=== PATIENT | female | born 2000 | race Caucasian/White ===

== ENCOUNTER 2019-03-23 08:53 | Emergency (ER) | payer OTHER ==
[~2019-03-23] VITALS: Ht 160 cm; Wt 72.7 kg
[~2019-03-23 08:53] MED LIST: BISA10SU2; COLA50CA; MIRALAX; MIRALEX OR; OXYB10TA; OXYB10TA OR; SENN8.6T5; [UNRECOGNIZED DRUG - OTHER]; [UNRECOGNIZED DRUG - OTHER]; dulcolax OR; mag citrate
[2019-03-23] MEDS ORDERED: CITA20TA7 PO (08:58)
[2019-03-23] MEDS ORDERED: ONDANSETRON 4 MG ORAL DISINTEGRATING TAB (Q0162 PER 1MG) PO ONE (09:45)
[2019-03-23 09:57] LABS: BASO # 0.1 10^3/uL (0.0-0.2); BASO % 0.5 % (0.0-1.0); EOS # 0.1 10^3/uL (0.0-0.50); HEMATOCRIT 37.4 % (36.0-47.0); HEMOGLOBIN 12.1 g/dl (12.0-15.5); LYMPH # 2.2 10^3/uL (1.5-6.5); LYMPH % 23.5 % (24.0-44.0); MEAN CORPUSCULAR HEMOGLOBIN 29.9 pg (27.0-33.0); MEAN CORPUSCULAR HGB CONC 32.4 g/dl (32.0-36.5); MEAN CORPUSCULAR VOLUME 92.3 fl (80.0-96.0); MONO # 0.6 10^3/uL (0.0-0.8); MONO % 5.9 % (0.0-5.0); NEUTROPHILS # 6.5 10^3/uL (1.8-7.7); NEUTROPHILS % 68.8 % (36.0-66.0); PLATELET COUNT, AUTOMATED 344 10^3/uL (150-450); RED BLOOD COUNT 4.05 10^6/uL (4.00-5.40); WHITE BLOOD COUNT 9.4 10^3/uL (4.0-10.0)
[2019-03-23 10:17] LABS: HCG, SERUM QUALITATIVE NEGATIVE (NEGATIVE)
[2019-03-23 10:27] LABS: ALBUMIN 3.7 GM/DL (3.2-5.2); ALT/SGPT 20 U/L (12-78); BILIRUBIN,DIRECT < 0.1 MG/DL (0.0-0.2); BILIRUBIN,TOTAL 0.2 MG/DL (0.2-1.0); BLOOD UREA NITROGEN 11 MG/DL (7-18); CARBON DIOXIDE LEVEL 26 MEQ/L (21-32); CHLORIDE LEVEL 107 MEQ/L (98-107); CREATININE FOR GFR 0.72 MG/DL (0.55-1.30); GLUCOSE, FASTING 95 MG/DL (70-100); MAGNESIUM LEVEL 1.9 MG/DL (1.8-2.4); POTASSIUM SERUM 4.3 MEQ/L (3.5-5.1); SODIUM LEVEL 140 MEQ/L (136-145); THYROID STIMULATING HORMONE 0.968 uIU/ML (0.463-3.98); TOTAL PROTEIN 7.2 GM/DL (6.4-8.2)
[2019-03-23] MEDS ORDERED: ONDA4TAB6 PO (11:04)
[2019-03-23 11:13] VITALS: BP 119/57
== END 2019-03-23 11:14 | disposition home or self-care (01) ==
LOC: M ED 08:53
DX: R42 Dizziness and giddiness (principal); R11.0 Nausea; Z79.899 Other long term (current) drug therapy
CPT/HCPCS: 80048; 80076; 83735; 84443; 84703; 85025; 99284; Q0162

== ENCOUNTER 2020-03-16 17:19 | Emergency (ER) | payer OTHER, SELFPAY ==
[~2020-03-16] VITALS: Ht 160 cm; Wt 75.0 kg
[~2020-03-16 17:19] MED LIST changes: +CITA20TA7 PO; +ONDA4TAB6 PO
[2020-03-16] MEDS ORDERED: ESCI20TA PO (17:26)
[2020-03-16] MEDS ORDERED: TOPI100T9 PO (17:26)
[2020-03-16] MEDS ORDERED: ONDANSETRON 4 MG ORAL DISINTEGRATING TAB PO ONE (18:15)
[2020-03-16 18:25] LABS: BASO % 0.3 % (0.0-1.0); EOS % 0.2 % (0.0-3.0); HEMOGLOBIN 14.3 g/dl (12.0-15.5); LYMPH # 2.2 10^3/uL (1.5-5.0); LYMPH % 18.8 % (24.0-44.0); MEAN CORPUSCULAR HEMOGLOBIN 32.2 pg (27.0-33.0); MEAN CORPUSCULAR HGB CONC 33.3 g/dl (32.0-36.5); MEAN CORPUSCULAR VOLUME 96.8 fl (80.0-96.0); MONO # 0.6 10^3/uL (0.0-0.8); MONO % 5.5 % (0.0-5.0); NEUTROPHILS # 8.7 10^3/uL (1.5-8.5); NEUTROPHILS % 74.8 % (36.0-66.0); PLATELET COUNT, AUTOMATED 346 10^3/uL (150-450); RED BLOOD COUNT 4.44 10^6/uL (4.00-5.40); WHITE BLOOD COUNT 11.6 10^3/uL (4.0-10.0)
[2020-03-16 18:58] LABS: BLOOD UREA NITROGEN 14 MG/DL (7-18); CALCIUM LEVEL 9.2 MG/DL (8.5-10.1); CARBON DIOXIDE LEVEL 23 MEQ/L (21-32); CHLORIDE LEVEL 109 MEQ/L (98-107); CREATININE FOR GFR 0.76 MG/DL (0.55-1.30); GLOMERULAR FILTRATION RATE > 60.0 (>60); GLUCOSE, FASTING 94 MG/DL (70-100); POTASSIUM SERUM 3.9 MEQ/L (3.5-5.1); SODIUM LEVEL 138 MEQ/L (136-145)
[2020-03-16] MEDS ORDERED: ONDA4TAB6 PO (20:20)
[2020-03-16 20:24] VITALS: BP 110/66
== END 2020-03-16 20:34 | disposition home or self-care (01) ==
LOC: M ED 17:19
DX: R11.0 Nausea (principal); R42 Dizziness and giddiness
CPT/HCPCS: 80048; 84702; 85025; 99283; Q0162

== ENCOUNTER → 2023-05-06 | Outpatient (REF) | payer OTHER ==
[~2023-05-06] MED LIST changes: +ESCI20TA16 PO; +TOPI100T9 PO
[2023-05-06 18:03] LABS: APPEARANCE, URINE HAZY (CLEAR); BACTERIA, URINE AUTO NEGATIVE (NEGATIVE); BILIRUBIN, URINE AUTO NEGATIVE (NEGATIVE); BLOOD, URINE BLOOD NEGATIVE (NEGATIVE); COLOR, URINE YELLOW (YELLOW); GLUCOSE, URINE (UA) AUTO NEGATIVE (NEGATIVE); KETONE, URINE AUTO NEGATIVE (NEGATIVE); LEUKOCYTE ESTERASE, URINE AUTO 1+ (NEGATIVE); MUCUS, URINE SMALL (NEGATIVE); NITRITE, URINE AUTO NEGATIVE (NEGATIVE); PROTEIN, URINE AUTO NEGATIVE (NEGATIVE); RBC, URINE AUTO 4 /HPF (0-3); SPECIFIC GRAVITY URINE AUTO 1.014 (1.002-1.035); SQUAMOUS EPITHELIAL CELL UR AU 2 /HPF (0-6); UROBILINOGEN, URINE AUTO 0.2 mg/dL (0.0-2.0); WBC, URINE AUTO 4 /HPF (0-3)
== END ==
LOC: M SMT 16:53
PROVIDERS: ATTEND Physician Assistant
DX: Q87.2 Congenital malformation syndromes predominantly involving limbs (principal)

== ENCOUNTER → 2023-05-12 | Outpatient (CLI) | payer OTHER | LOC: M RAD 10:57 | PROVIDERS: ATTEND Physician Assistant | DX: Q87.2 Congenital malformation syndromes predominantly involving limbs (principal) ==

== ENCOUNTER → 2023-08-22 | Outpatient (REF) | LOC: M EMP 11:28 | PROVIDERS: ATTEND Family Medicine | DX: Z11.52 Encounter for screening for COVID-19 (principal) ==

== ENCOUNTER 2025-07-18 06:26 | Emergency (ER) | payer OTHER, BC ==
[~2025-07-18] VITALS: Ht 160 cm; Wt 89.5 kg
[~2025-07-18 06:26] MED LIST changes: +ONDA-282 PO; -ONDA4TAB6 PO; +TOPI-257 PO; -TOPI100T9 PO
[2025-07-18 06:27] VITALS: BP 126/60; TEMP 97.4; O2SAT 97
[2025-07-18] MEDS: KETOROLAC 60 MG/2 ML VIAL IM ONE (07:36)
[2025-07-18] MEDS ORDERED: NAPR-837 PO (08:06)
[2025-07-18] MEDS ORDERED: METH-1165 PO (08:06)
== END 2025-07-18 09:03 | disposition home or self-care (01) ==
LOC: M ED 06:26
DX: S16.1XXA Strain of muscle, fascia and tendon at neck level, initial encounter (principal); S39.012A Strain of muscle, fascia and tendon of lower back, initial encounter; V49.40XA Driver injured in collision with unspecified motor vehicles in traffic accident, initial encounter; Y92.410 Unspecified street and highway as the place of occurrence of the external cause; Y93.89 Activity, other specified; Y99.9 Unspecified external cause status; Z79.899 Other long term (current) drug therapy; Z79.1 Long term (current) use of non-steroidal anti-inflammatories (NSAID)
CPT/HCPCS: 70450; 72125; 96372; 99283; J1885